=== PATIENT | male | born 1975 | race African-American/Black ===

== ENCOUNTER 2017-08-05 21:02 | Emergency (ER) | payer OTHER ==
[~2017-08-05] VITALS: Ht 175.3 cm; Wt 79.9 kg
[2017-08-05 21:14] VITALS: TEMP 37.7; O2SAT 97; Ht 175.3 cm; Wt 79.9 kg
[2017-08-05 22:11] LABS: BASO % 0.6 %; BASO ABS # 0.05 K/uL (0-0.2); COMPLETE YES; EOS % 3.5 %; HEMATOCRIT 38.2 % (42-52); IG% 0.1 %; LYMPH % 32.4 %; LYMPH ABS # 2.58 K/uL (1.2-3.4); MEAN CORPUSCULAR HEMOGLOBIN 31.4 pg (25-34); MEAN CORPUSCULAR HGB CONC 34.6 g/dl (32-36); MEAN PLATELET VOLUME 11.4 fL (7.4-10.4); MONO % 8.8 %; NEUT % 54.6 %; PLATELET COUNT 175 K/uL (130-400); WHITE BLOOD COUNT 7.97 K/uL (4.8-10.8)
[2017-08-05 22:18] LABS: BUN/CREATININE RATIO 14.4 (10-20); CALCIUM 8.9 mg/dl (8.5-10.1); CREATININE 1.18 mg/dl (0.60-1.40); POTASSIUM 3.5 mmol/L (3.5-5.1)
[2017-08-05 22:22] LABS: PARTIAL THROMBOPLASTIN RATIO 1.1; PROTHROMBIN TIME (PATIENT) 10.7 SECONDS (9.0-12.0)
[2017-08-05 22:23] LABS: CKMB/CK RATIO 0.7 (0-3.0)
--- NOTE | 2017-08-05 22:30 | DIAGNOSTIC IMAGING REPORT ---
CHEST ONE VIEW PORTABLE CLINICAL HISTORY: Fever and sepsis COMPARISON STUDY: No previous studies for comparison. FINDINGS: The cardiac and mediastinal contours are normal. There is no evidence of focal pulmonary consolidation. There is no evidence of failure. No pleural effusions are visualized.[ IMPRESSION: No active disease in the chest. Electronically signed by: Luis Alfredo Woodruff M.D. 08/05/2017 10:29 PM Dictated Date/Time: 08/05/2017 10:28 PM
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
[2017-08-05] MEDS ORDERED: ACETAMINOPHEN 500 MG TAB PO STA (23:52)
[2017-08-05 23:56] VITALS: BP 187/122; PULSE 90; O2SAT 97
== END 2017-08-05 23:57 | disposition home or self-care (01) ==
LOC: C.EDB 21:05
DX: I10 Essential (primary) hypertension (principal); R07.2 Precordial pain; Z82.49 Family history of ischemic heart disease and other diseases of the circulatory system; Z83.3 Family history of diabetes mellitus; F17.200 Nicotine dependence, unspecified, uncomplicated